=== PATIENT | female | born 1965 | race Caucasian/White ===

== ENCOUNTER 2019-10-12 16:04 | Emergency (ER) | payer MEDICAID ==
[~2019-10-12] VITALS: Ht 154.9 cm; Wt 65.0 kg
[2019-10-12] MEDS ORDERED: ondansetron/PF 4mg/2ml inj IV ONE (16:10)
[2019-10-12] MEDS ORDERED: normal saline 1000ML IV soln IVB ONE (16:45)
--- NOTE | 2019-10-12 16:45 | NUR ---
poison control advises to obeserve pt no less than 6 hrs, give fluids, give benzos for increased jitteriness, draw a cmp, tylenol, asa, utox. aware
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
[2019-10-12] MEDS ORDERED: HCTZ25T PO (17:05)
[2019-10-12] MEDS ORDERED: LANTUS SQ (17:05)
[2019-10-12] MEDS ORDERED: PANT40TA4 PO (17:05)
[2019-10-12] MEDS ORDERED: CYCL-1 PO (17:05)
[2019-10-12] MEDS ORDERED: GABA600T13 PO (17:05)
[2019-10-12 17:15] LABS: CLARITY,URINE CLEAR (Clear); COLOR,URINE YELLOW (Yellow); GLUCOSE, URINE NEGATIVE (Neg); KETONES,URINE NEGATIVE (Neg); LEUKOCYTE ESTERASE ,URINE NEGATIVE (Neg); NITRITES, URINE NEGATIVE (Neg); OCCULT BLOOD,URINE NEGATIVE (Neg); PH,URINE 5.5 (4.8-8.0); PROTEIN,URINE NEGATIVE (Neg); UROBILINOGEN,URINE 0.2 E.U/dL (0.2-1.0)
[2019-10-12 17:17] LABS: BASOPHILS # (AUTO) 0.1 X10'3 (0-0.2); EOSINOPHILS # (AUTO) 0.1 X10'3 (0-0.9); EOSINOPHILS % (AUTO) 1.7 % (0-6); LYMPHOCYTES # (AUTO) 2.5 X10'3 (1.1-4.8); LYMPHOCYTES % (AUTO) 40.9 % (21-51); MEAN CORPUSCULAR HEMOGLOBIN 28.7 PG (27.0-31.0); MEAN CORPUSCULAR HGB CONC 33.4 g/dL (33.0-36.5); MEAN CORPUSCULAR VOLUME 85.9 FL (78-98); MEAN PLATELET VOLUME 8.1 FL (7.4-10.4); MONOCYTES # (AUTO) 0.4 X10'3 (0-0.9); MONOCYTES % (AUTO) 6.2 % (2-12); NEUTROPHILS # (AUTO) 3.1 X10'3 (1.8-7.7); NEUTROPHILS % (AUTO) 50.2 % (42-75); PLATELET COUNT 284 X10'3 (140-440); RED BLOOD COUNT 4.53 X10'6 (4.20-5.60); RED CELL DISTRIBUTION WIDTH 14.4 % (11.5-14.5); WHITE BLOOD COUNT 6.2 X10'3 (4.5-11.0)
[2019-10-12 17:19] LABS: URINE AMPHETAMINE SCREEN POSITIVE (Neg); URINE BARBITUATE SCREEN NEGATIVE (Neg); URINE BENZODIAZEPINES SCREEN NEGATIVE (Neg); URINE CANNABINOID SCREEN NEGATIVE (Neg); URINE COCAINE SCREEN NEGATIVE (Neg); URINE METHADONE SCREEN NEGATIVE (Neg); URINE OPIATE SCREEN NEGATIVE (Neg); URINE PHENCYCLIDINE SCREEN NEGATIVE (Neg)
[2019-10-12 17:26] LABS: UA COLLECTION TYPE CLN CATCH MIDSTREAM
[2019-10-12 17:34] LABS: HEMOGLOBIN A1C 8.5 % (4.5-6.2)
[2019-10-12 17:35] LABS: ALANINE AMINOTRANSFERASE 30 U/L (12-78); ALBUMIN 3.6 G/DL (3.4-5.0); ALBUMIN/GLOBULIN RATIO 0.9 (1.1-1.5); ALKALINE PHOSPHATASE 97 IU/L (46-116); ANION GAP 9 (8-16); ASPARTATE AMINO TRANSFERASE 39 U/L (10-37); BILIRUBIN,TOTAL 0.3 MG/DL (0.1-1.0); BLOOD UREA NITROGEN 24 MG/DL (7-18); BUN/CREATININE RATIO 21.1 (6.6-38.0); CALCIUM 9.2 MG/DL (8.5-10.1); CHLORIDE 104 MMOL/L (99-107); CREATININE 1.14 MG/DL (0.40-0.90); GLUCOSE 112 MG/DL (70-104); SODIUM 141 MMOL/L (135-145); TOTAL CARBON DIOXIDE 27.9 MMOL/L (24-32); TOTAL PROTEIN 7.6 G/DL (6.4-8.2); eGFR 50 ML/MIN
[2019-10-12 17:37] LABS: ACETAMINOPHEN < 2.0 UG/ML (10-30); POTASSIUM 2.9 MMOL/L (3.5-5.1)
[2019-10-12] MEDS ORDERED: thiamine 100mg tablet PO ONE (18:15)
[2019-10-12] MEDS ORDERED: potassium Cl 20 mEq SR tablet PO ONE (18:15)
[2019-10-12] MEDS ORDERED: potassium 10mEq/100ml NS w/LIDOcaine (10mg/bag) IV SCH (18:15)
[2019-10-12] MEDS ORDERED: magnesium oxide 400mg tablet PO ONE (18:15)
[2019-10-12] MEDS ORDERED: phenobarbital inj 260 MG in normal saline 100ml IV soln 100 ML IV ONE (18:45)
--- NOTE | 2019-10-12 18:46 | NUR ---
pt up to the BR with tech. Steady gate.
--- NOTE | 2019-10-12 19:01 | NUR ---
packet faxed to [facility]
[2019-10-12] MEDS: potassium Cl 10 mEq/100mL bag IV SCH ×2 (19:28→20:43)
--- NOTE | 2019-10-12 19:29 | NUR ---
YONY increased to level 11 r/t 1799 hold. Pt is currently sitting EOB and eating supper.
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
[2019-10-12] MEDS ORDERED: cyclobenzaprine 10mg tablet PO SCH (21:00)
[2019-10-12] MEDS ORDERED: insulin glargine (Lantus) pen - multi-dose SQ SCH (21:00)
--- NOTE | 2019-10-12 21:03 | NUR ---
Poison control called and has closed the case out.
--- NOTE | 2019-10-12 21:04 | NUR ---
Per the patient she does not want any information given to anyone if they should call or try and visit
--- NOTE | 2019-10-12 22:39 | NUR ---
The patient appears to be sleeping
--- NOTE | 2019-10-13 00:55 | NUR ---
The patient is currently sleeping.
--- NOTE | 2019-10-13 05:26 | NUR ---
PT WAS MOVED BACK TO MAIN ER APPROX 0100 HRS. SHE HAS SLEPT THROUGH THE NIGHT WITH THE EXCEPTION OF GETTING UP TO VOID ON ONE OCCASSION. PT IN VIEW OF RN STATION.
[2019-10-13] MEDS ORDERED: pantoprazole 40mg Tablet.DR PO SCH (08:00)
[2019-10-13] MEDS ORDERED: HYDROchlorothiazide 25mg tablet PO SCH (08:00)
[2019-10-13 09:11] VITALS: BP 118/80
--- NOTE | 2019-10-13 10:23 | NUR ---
Breaking primary RN, pt is in room laying on left side, eyes closed, regular breathing present, no agitation observed
--- NOTE | 2019-10-13 11:28 | NUR ---
BREAKING PRIMARY RN, PT IS SITTING UP AT BED SIDE, WAITING FOR HER TRAY, SHE IS CALM AT THIS TIME
--- NOTE | 2019-10-13 17:04 | NUR ---
PATIENT HAS BEEN ACCEPTED AT [facility], PER DR. BURCIAGA AT 1600. TELEPHONE NUMBER TO FACILITY IS [phone]. PHONE REPORT GIVEN TO SWETA VÁZQUEZ AT THE FACILITY. HEAD BUYER TOBACCO TIME IS SCHEDULED FOR 1720.
--- NOTE | 2019-10-13 17:32 | NUR ---
discussed pt's increasing agitation with melisa de oliveira. new order for atandrade po received.
[2019-10-13] MEDS: LORazepam 1 MG tablet PO ONE ×2 (17:37→17:41)
--- NOTE | 2019-10-13 17:42 | NUR ---
med dropped on floor when attempting to administerd. wasted & witnessed by SWETA Peterson. New order placed.
[2019-10-13] MEDS ORDERED: LORazepam 1 MG tablet PO ONE ×2 (17:45)
== END 2019-10-13 18:09 ==
LOC: EEVIPCON 16:05 → ER 16:05
DX: T42.6X2A Poisoning by other antiepileptic and sedative-hypnotic drugs, intentional self-harm, initial encounter (principal); F10.129 Alcohol abuse with intoxication, unspecified; E87.6 Hypokalemia; R45.851 Suicidal ideations; F15.90 Other stimulant use, unspecified, uncomplicated; F32.9 Major depressive disorder, single episode, unspecified; Z79.4 Long term (current) use of insulin; Z79.899 Other long term (current) drug therapy; Y92.89 Other specified places as the place of occurrence of the external cause; Y90.0 Blood alcohol level of less than 20 mg/100 ml
CPT/HCPCS: 36415; 80053; 80305; 80320; 80329; 81003; 82948; 83036; 84443; 85025; 96365; 96366; 96368; 99285; J2560; J3480; J7030; 93005; J1815

== ENCOUNTER 2019-12-13 14:19 | Observation (INO) | payer MEDICAID ==
[~2019-12-13] VITALS: Ht 154.9 cm; Wt 65.0 kg
[~2019-12-13 14:19] MED LIST: CYCL-1 PO; GABA600T13 PO; HCTZ25T PO; LANTUS SQ; PANT40TA4 PO
[2019-12-13] MEDS ORDERED: fentaNYL/PF 50MCG/1 ML 2ML syringe IV ONE (14:35)
[2019-12-13] MEDS ORDERED: nitroGLYCERIN 1gm ointment UD TP ONE (14:35)
[2019-12-13] MEDS ORDERED: ondansetron/PF 4mg/2ml inj IV ONE (14:35)
[2019-12-13 15:04] LABS: BASOPHILS % (AUTO) 0.7 % (0-1); EOSINOPHILS # (AUTO) 0.1 X10'3 (0-0.9); EOSINOPHILS % (AUTO) 1.2 % (0-6); HEMATOCRIT 42.4 % (35.0-45.0); HEMOGLOBIN 14.3 g/dl (12.0-16.0); LYMPHOCYTES # (AUTO) 2.3 X10'3 (1.1-4.8); LYMPHOCYTES % (AUTO) 39.6 % (21-51); MEAN CORPUSCULAR HEMOGLOBIN 29.3 PG (27.0-31.0); MEAN CORPUSCULAR HGB CONC 33.7 g/dL (33.0-36.5); MEAN CORPUSCULAR VOLUME 86.9 FL (78-98); MEAN PLATELET VOLUME 9.3 FL (7.4-10.4); MONOCYTES # (AUTO) 0.3 X10'3 (0-0.9); MONOCYTES % (AUTO) 5.5 % (2-12); NEUTROPHILS # (AUTO) 3.1 X10'3 (1.8-7.7); PLATELET COUNT 190 X10'3 (140-440); RED BLOOD COUNT 4.88 X10'6 (4.20-5.60); RED CELL DISTRIBUTION WIDTH 15.6 % (11.5-14.5); WHITE BLOOD COUNT 5.8 X10'3 (4.5-11.0)
[2019-12-13 15:13] LABS: D-DIMER 1.18 MG/L FEU (0-0.50)
[2019-12-13 15:16] LABS: ALANINE AMINOTRANSFERASE 26 U/L (12-78); ALBUMIN 3.9 G/DL (3.4-5.0); ALBUMIN/GLOBULIN RATIO 0.9 (1.1-1.5); ALKALINE PHOSPHATASE 89 IU/L (46-116); ANION GAP 9 (8-16); ASPARTATE AMINO TRANSFERASE 26 U/L (10-37); BILIRUBIN,TOTAL 0.3 MG/DL (0.1-1.0); BLOOD UREA NITROGEN 21 MG/DL (7-18); BUN/CREATININE RATIO 17.2 (6.6-38.0); CALCIUM 10.5 MG/DL (8.5-10.1); CHLORIDE 104 MMOL/L (99-107); CREATININE 1.22 MG/DL (0.40-0.90); GLUCOSE 149 MG/DL (70-104); SODIUM 141 MMOL/L (135-145); TOTAL CARBON DIOXIDE 27.6 MMOL/L (24-32); TOTAL PROTEIN 8.3 G/DL (6.4-8.2); eGFR 46 ML/MIN
[2019-12-13 15:18] LABS: POTASSIUM 4.1 MMOL/L (3.5-5.1)
[2019-12-13] MEDS ORDERED: iohexol 350MG/ML 100ml bottle IV ONE (15:56)
[2019-12-13] MEDS ORDERED: normal saline 1000ml 1,000 ML IV ONE (16:05)
--- NOTE | 2019-12-13 16:25 | NUR ---
Student documentation: I have reviewed and agree with all interventions, assessments performed and documented by Molly MEMBRENO. Student Medication Administration: For this medication-pass time frame, all medication were reviewed, dispensed, administered and documented per hospital policy by Molly MEMBRENO. .
[2019-12-13] MEDS ORDERED: DICL100G30 (18:58)
[2019-12-13] MEDS ORDERED: LINA5TAB4 PO (18:58)
[2019-12-13] MEDS ORDERED: LISI10TA4 PO (18:58)
[2019-12-13] MEDS ORDERED: AMIT25TA9 PO (18:58)
[2019-12-13] MEDS ORDERED: metoprolol tartrate 1mg/ml inj IV PRN (20:00)
[2019-12-13] MEDS ORDERED: magnesium hydroxide 30ml (MOM) UD suspension PO PRN (20:00)
[2019-12-13] MEDS ORDERED: mag hydrox/Alum hydrox/simeth 30ml oral suspension PO PRN (20:00)
[2019-12-13] MEDS ORDERED: ondansetron/PF 4mg/2ml inj IV PRN (20:00)
[2019-12-13] MEDS ORDERED: magnesium 2GM in 50ml NS 50 ML IV PRN (20:00)
[2019-12-13] MEDS ORDERED: potassium Cl 20 mEq SR tablet PO PRN ×2 (20:00)
[2019-12-13] MEDS: K and/or MAG REPLACEMENT MC SCH (20:00)
[2019-12-13] MEDS ORDERED: nitroGLYCERIN 0.4mg SUBLingual tab SL PRN ×2 (20:00→20:30)
[2019-12-13] MEDS ORDERED: potassium CL 10mEq/100ml bag 100 ML IV PRN ×2 (20:00)
[2019-12-13] MEDS ORDERED: bisacodyl 10mg suppository rectal RC PRN (20:00)
[2019-12-13] MEDS ORDERED: acetaminophen 325mg tablet PO PRN (20:00)
[2019-12-13] MEDS ORDERED: regadenoson 0.4mg/5ml syringe IV ONE (20:00)
[2019-12-13] MEDS ORDERED: magnesium Cl slow-release 64mg tablet PO PRN (20:00)
[2019-12-13] MEDS ORDERED: aminophylline 250mg/10ml inj. IV PRN (20:00)
[2019-12-13] MEDS ORDERED: magnesium 4gm in 100ml NS 100 ML IV PRN (20:00)
[2019-12-13] MEDS ORDERED: glucagon, human recombinant 1mg kit SUBCUT PRN (20:10)
[2019-12-13] MEDS ORDERED: dextrose ORAL solution 15 GM/59 ML bottle PO PRN ×2 (20:10)
[2019-12-13] MEDS ORDERED: insulin Lispro (HumaLOG) vial - multi-dose SQ SCH (20:10)
[2019-12-13] MEDS ORDERED: MESSAGE TO PHARMACY PO ONE (20:10)
[2019-12-13] MEDS ORDERED: dextrose 50%-water 50ml dispensing syringe IV PRN ×2 (20:10)
--- NOTE | 2019-12-13 20:20 | NUR ---
I have received report from and had the opportunity to ask questions and assume patient care. Addendum: 12/14/19 at 0606 by Kristie Stein RN from SWETA Patel of ED.
[2019-12-13] MEDS ORDERED: aspirin 81mg tab.chew PO ONE (20:30)
[2019-12-13 20:46] LABS: HEMOGLOBIN A1C 8.2 % (4.5-6.2)
[2019-12-13 20:50] VITALS: BP 128/74
[2019-12-13] MEDS ORDERED: insulin glargine (Lantus) pen - multi-dose SQ SCH (21:00)
[2019-12-13] MEDS: heparin, porcine 5000 units/ml vial SQ SCH (21:42)
[2019-12-13] MEDS: docusate sod 100mg capsule PO SCH (21:42)
[2019-12-13] MEDS: normal saline 1000ml 1,000 ML IV SCH (21:51)
[2019-12-13] MEDS ORDERED: regadenoson 0.4mg/5ml syringe IV PRN (22:15)
[2019-12-14] VITALS (9 sets, daily range): BP systolic 97–176; BP diastolic 58–84
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
--- NOTE | 2019-12-14 00:36 | NUR ---
Paged Dr. Hannon. PAGER ID: [phone] MESSAGE: [phone]: EDDIE Laws- Pt has hx of suicide attempt 2 months ago by taking too much Gabapentin (hospitalized for this), but denied having any suicidal ideation now/recent.
[2019-12-14 02:43] LABS: BASOPHILS % (AUTO) 0.7 % (0-1); EOSINOPHILS # (AUTO) 0.1 X10'3 (0-0.9); EOSINOPHILS % (AUTO) 1.7 % (0-6); HEMATOCRIT 41.2 % (35.0-45.0); HEMOGLOBIN 13.5 g/dl (12.0-16.0); LYMPHOCYTES # (AUTO) 2.8 X10'3 (1.1-4.8); LYMPHOCYTES % (AUTO) 54.4 % (21-51); MEAN CORPUSCULAR HEMOGLOBIN 28.7 PG (27.0-31.0); MEAN CORPUSCULAR HGB CONC 32.8 g/dL (33.0-36.5); MEAN CORPUSCULAR VOLUME 87.4 FL (78-98); MEAN PLATELET VOLUME 8.5 FL (7.4-10.4); MONOCYTES # (AUTO) 0.3 X10'3 (0-0.9); MONOCYTES % (AUTO) 5.8 % (2-12); NEUTROPHILS # (AUTO) 1.9 X10'3 (1.8-7.7); NEUTROPHILS % (AUTO) 37.4 % (42-75); PLATELET COUNT 212 X10'3 (140-440); RED BLOOD COUNT 4.71 X10'6 (4.20-5.60); RED CELL DISTRIBUTION WIDTH 15.8 % (11.5-14.5); WHITE BLOOD COUNT 5.1 X10'3 (4.5-11.0)
[2019-12-14 02:56] LABS: ALANINE AMINOTRANSFERASE 24 U/L (12-78); ALBUMIN 3.6 G/DL (3.4-5.0); ALKALINE PHOSPHATASE 79 IU/L (46-116); ANION GAP 5 (8-16); ASPARTATE AMINO TRANSFERASE 17 U/L (10-37); BILIRUBIN,TOTAL 0.3 MG/DL (0.1-1.0); BLOOD UREA NITROGEN 19 MG/DL (7-18); BUN/CREATININE RATIO 16.5 (6.6-38.0); CALCIUM 9.1 MG/DL (8.5-10.1); CHLORIDE 107 MMOL/L (99-107); CREATININE 1.15 MG/DL (0.40-0.90); GLUCOSE 125 MG/DL (70-104); POTASSIUM 3.8 MMOL/L (3.5-5.1); SODIUM 142 MMOL/L (135-145); TOTAL CARBON DIOXIDE 30.4 MMOL/L (24-32); TOTAL PROTEIN 7.1 G/DL (6.4-8.2); eGFR 50 ML/MIN
[2019-12-14 03:00] LABS: MAGNESIUM 1.7 MG/DL (1.5-2.4); PHOSPHORUS 4.4 MG/DL (2.3-4.5)
[2019-12-14 03:18] LABS: ANISOCYTOSIS 2+; PLATELET ESTIMATE NORMAL; TOTAL CELLS COUNTED 100
--- NOTE | 2019-12-14 06:28 | NUR ---
Problems reprioritized. Patient report given, questions answered & plan of care reviewed with SWETA Quiroga.
--- NOTE | 2019-12-14 07:40 | NUR ---
Page sent to Dr. Umanzor: PAGER ID: [phone] MESSAGE: [phone] Katie Laws: Patient is requesting something for headache. Thanks, Kimber [phone]
--- NOTE | 2019-12-14 07:42 | NUR ---
Patient in room PCU 3016. I have received report from Mri Specialist RN and had the opportunity to ask questions and assume patient care.
[2019-12-14] MEDS: K and/or MAG REPLACEMENT MC SCH (08:00)
[2019-12-14] MEDS ORDERED: lisinopril 10 MG tablet PO SCH (08:00)
[2019-12-14] MEDS ORDERED: metoprolol tartrate 12.5mg (1/2 tablet) PO SCH (08:00)
[2019-12-14] MEDS ORDERED: pantoprazole 40mg Tablet.DR PO SCH (08:00)
[2019-12-14] MEDS ORDERED: aspirin 81mg tab.chew PO SCH (08:00)
[2019-12-14] MEDS ORDERED: atorvastatin 10mg tablet PO SCH (08:00)
[2019-12-14] MEDS ORDERED: HYDROchlorothiazide 25mg tablet PO SCH (08:00)
[2019-12-14] MEDS: gabapentin 300mg capsule PO SCH ×2 (08:39→13:00)
[2019-12-14] MEDS: docusate sod 100mg capsule PO SCH (08:40)
[2019-12-14] MEDS: heparin, porcine 5000 units/ml vial SQ SCH (08:42)
[2019-12-14] MEDS ORDERED: acetaminophen 325mg tablet PO PRN (09:20)
--- NOTE | 2019-12-14 10:00 | NUR ---
Unable to obtain patient's AM accucheck due to work load. Patient at [facility]. Will obtain afternoon blood sugar and continue to monitor.
[2019-12-14] MEDS: normal saline 1000ml 1,000 ML IV SCH (12:02)
--- NOTE | 2019-12-14 14:01 | NUR ---
Student documentation: I have reviewed and agree with all interventions, assessments performed and documented by SN Socorro. Student Medication Administration: For this medication-pass time frame, all medication were reviewed, dispensed, administered and documented per hospital policy by SN. Socorro .
--- NOTE | 2019-12-14 14:01 | NUR ---
Patient stable for discharge per MD order. All discharge information and education reviewed with patient before signing. IV discontinued with catheter in tact, youth nutritional monitor removed and returned, no new prescriptions. Patient picked up by transport service.
--- NOTE | 2019-12-14 15:01 | NUR ---
Spoke to transport service, they said the regional dedicated truck driver would be in front of lobby to pick up and delivery driver at 1340 and would call when they arrived. The patient was wheeled down by aide and [employer] at 1338. At approx 1400, the regional dedicated truck driver called and said he had been waiting and hadn't seen the patient. RN went down to lobby immediately and did not see transport service. After calling transport center, they informed RN the regional dedicated truck driver had cancelled the ride. RN called company back and voiced how the regional dedicated truck driver was not there and must have gone to the wrong location. After spending 40 minutes on the phone to arrange a ride swiftly, the only option given was a 2-4 hour wait. insurance manager Latonia notified.
[2019-12-14] MEDS ORDERED: amitriptyline 25mg tablet PO SCH (21:00)
== END 2019-12-14 13:40 | disposition home or self-care (01) ==
LOC: ER 14:19 → ED HOLD 19:57 → PCU 3S 20:45
PROVIDERS: ADMIT Family Medicine; ATTEND Family Medicine
DX: R07.89 Other chest pain (principal); E11.9 Type 2 diabetes mellitus without complications; I25.10 Atherosclerotic heart disease of native coronary artery without angina pectoris; I10 Essential (primary) hypertension; E78.5 Hyperlipidemia, unspecified; F32.9 Major depressive disorder, single episode, unspecified; F15.90 Other stimulant use, unspecified, uncomplicated; F10.129 Alcohol abuse with intoxication, unspecified; I25.2 Old myocardial infarction; Z79.4 Long term (current) use of insulin; Z79.899 Other long term (current) drug therapy
CPT/HCPCS: 36415; 71045; 71275; 78452; 80053; 82948; 83036; 83735; 84100; 84484; 85025; 85379; 87081; 93005; 93017; 93308; 96372; 96374; 96375; 99285; A9500; G0378; J1644; J2405; J2785; J3010; J7030; Q9967; J1815

== ENCOUNTER 2019-12-31 12:16 | Emergency (ER) | payer MEDICAID ==
[~2019-12-31] VITALS: Ht 154.9 cm; Wt 68.0 kg
[~2019-12-31 12:16] MED LIST changes: +AMIT25TA9 PO; +DICL100G30; +LINA5TAB4 PO; +LISI10TA4 PO
[2019-12-31 12:37] VITALS: BP 151/95
--- NOTE | 2019-12-31 13:18 | NUR ---
called for pt once
[2019-12-31 13:32] LABS: CLARITY,URINE CLEAR (Clear); COLOR,URINE YELLOW (Yellow); GLUCOSE, URINE NEGATIVE (Neg); KETONES,URINE NEGATIVE (Neg); LEUKOCYTE ESTERASE ,URINE NEGATIVE (Neg); NITRITES, URINE NEGATIVE (Neg); OCCULT BLOOD,URINE NEGATIVE (Neg); PH,URINE 5.5 (4.8-8.0); PROTEIN,URINE NEGATIVE (Neg); UROBILINOGEN,URINE 0.2 E.U/dL (0.2-1.0)
[2019-12-31 13:38] LABS: UA COLLECTION TYPE NON-SPECIFIED
[2019-12-31 13:42] LABS: ALANINE AMINOTRANSFERASE 34 U/L (12-78); ALBUMIN 4.2 G/DL (3.4-5.0); ALBUMIN/GLOBULIN RATIO 1.1 (1.1-1.5); ALKALINE PHOSPHATASE 84 IU/L (46-116); ANION GAP 13 (8-16); ASPARTATE AMINO TRANSFERASE 42 U/L (10-37); BILIRUBIN,TOTAL 0.4 MG/DL (0.1-1.0); BLOOD UREA NITROGEN 23 MG/DL (7-18); BUN/CREATININE RATIO 20.5 (6.6-38.0); CALCIUM 9.4 MG/DL (8.5-10.1); CHLORIDE 106 MMOL/L (99-107); CREATININE 1.12 MG/DL (0.40-0.90); GLUCOSE 127 MG/DL (70-104); LIPASE 89 U/L (73-393); SODIUM 141 MMOL/L (135-145); TOTAL CARBON DIOXIDE 22.4 MMOL/L (24-32); TOTAL PROTEIN 8.2 G/DL (6.4-8.2); eGFR 51 ML/MIN
[2019-12-31 14:00] LABS: BASOPHILS % (AUTO) 0.7 % (0-1); EOSINOPHILS # (AUTO) 0.1 X10'3 (0-0.9); HEMATOCRIT 41.1 % (35.0-45.0); HEMOGLOBIN 13.8 g/dl (12.0-16.0); LYMPHOCYTES # (AUTO) 2.4 X10'3 (1.1-4.8); LYMPHOCYTES % (AUTO) 38.6 % (21-51); MEAN CORPUSCULAR HGB CONC 33.7 g/dL (33.0-36.5); MEAN PLATELET VOLUME 7.9 FL (7.4-10.4); MONOCYTES # (AUTO) 0.3 X10'3 (0-0.9); MONOCYTES % (AUTO) 4.5 % (2-12); NEUTROPHILS # (AUTO) 3.3 X10'3 (1.8-7.7); NEUTROPHILS % (AUTO) 54.2 % (42-75); PLATELET COUNT 296 X10'3 (140-440); RED BLOOD COUNT 4.77 X10'6 (4.20-5.60); RED CELL DISTRIBUTION WIDTH 15.2 % (11.5-14.5); WHITE BLOOD COUNT 6.1 X10'3 (4.5-11.0)
[2019-12-31] MEDS ORDERED: VANC125C5 PO (15:43)
--- NOTE | 2019-12-31 16:44 | NUR ---
STOOL SAMPLE COLLECTED, SENT TO LAB
[2020-01-01 09:45] LABS: C DIFF SPECIMEN=DIARRHEA? ACCEPTABLE; C DIFFICILE TOXINS A&B NEGATIVE (Neg)
[2020-01-01 09:46] LABS: C DIFF ANTIGEN SEE COMMENTS (NEGATIVE)
[2020-01-01 11:41] LABS: C DIFF TOXIN (LAMP) POSITIVE (NEG)
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
== END 2019-12-31 16:54 | disposition home or self-care (01) ==
LOC: ER 12:17
DX: R19.7 Diarrhea, unspecified (principal); I25.10 Atherosclerotic heart disease of native coronary artery without angina pectoris; I25.2 Old myocardial infarction; F32.9 Major depressive disorder, single episode, unspecified; F15.90 Other stimulant use, unspecified, uncomplicated; Z79.4 Long term (current) use of insulin; Z79.899 Other long term (current) drug therapy
CPT/HCPCS: 36415; 80053; 81003; 83690; 85025; 87324; 87449; 87493; 99283

== ENCOUNTER 2020-06-27 00:18 | Emergency (ER) | payer MEDICAID ==
[~2020-06-27] VITALS: Ht 154.9 cm; Wt 72.7 kg
[~2020-06-27 00:18] MED LIST changes: -PANT40TA4 PO; +PANT40TA54 PO
[2020-06-27] MEDS ORDERED: ondansetron/PF 4mg/2ml inj IV ONE (01:00)
[2020-06-27] MEDS ORDERED: normal saline 1000ML IV soln IVB ONE (01:00)
[2020-06-27 01:44] LABS: BASOPHILS % (AUTO) 0.4 % (0-1); EOSINOPHILS # (AUTO) 0.1 X10'3 (0-0.9); EOSINOPHILS % (AUTO) 0.6 % (0-6); HEMATOCRIT 43.3 % (35.0-45.0); HEMOGLOBIN 14.6 g/dl (12.0-16.0); LYMPHOCYTES # (AUTO) 1.3 X10'3 (1.1-4.8); LYMPHOCYTES % (AUTO) 11.1 % (21-51); MEAN CORPUSCULAR HEMOGLOBIN 29.9 PG (27.0-31.0); MEAN CORPUSCULAR HGB CONC 33.6 g/dL (33.0-36.5); MEAN CORPUSCULAR VOLUME 88.8 FL (78-98); MEAN PLATELET VOLUME 8.4 FL (7.4-10.4); MONOCYTES # (AUTO) 0.5 X10'3 (0-0.9); MONOCYTES % (AUTO) 4.4 % (2-12); NEUTROPHILS % (AUTO) 83.5 % (42-75); PLATELET COUNT 244 X10'3 (140-440); RED BLOOD COUNT 4.87 X10'6 (4.20-5.60); RED CELL DISTRIBUTION WIDTH 14.3 % (11.5-14.5); WHITE BLOOD COUNT 11.9 X10'3 (4.5-11.0)
[2020-06-27 01:46] LABS: ALANINE AMINOTRANSFERASE 29 U/L (12-78); ALBUMIN 4.4 G/DL (3.4-5.0); ALBUMIN/GLOBULIN RATIO 1.1 (1.1-1.5); ALKALINE PHOSPHATASE 103 IU/L (46-116); ANION GAP 10 (8-16); ASPARTATE AMINO TRANSFERASE 12 U/L (10-37); BILIRUBIN,TOTAL 0.3 MG/DL (0.1-1.0); BLOOD UREA NITROGEN 30 MG/DL (7-18); CALCIUM 9.1 MG/DL (8.5-10.1); CHLORIDE 103 MMOL/L (99-107); GLUCOSE 210 MG/DL (70-104); LIPASE 93 U/L (73-393); POTASSIUM 3.5 MMOL/L (3.5-5.1); SODIUM 141 MMOL/L (135-145); TOTAL PROTEIN 8.5 G/DL (6.4-8.2); eGFR 47 ML/MIN
[2020-06-27] MEDS ORDERED: ONDA4TAB12 PO (02:10)
[2020-06-27 03:02] VITALS: BP 140/87
== END 2020-06-27 03:10 | disposition home or self-care (01) ==
LOC: ER 00:19
DX: R11.2 Nausea with vomiting, unspecified (principal); R05 Cough; I25.10 Atherosclerotic heart disease of native coronary artery without angina pectoris; I25.2 Old myocardial infarction; E11.9 Type 2 diabetes mellitus without complications; F32.9 Major depressive disorder, single episode, unspecified; Z72.89 Other problems related to lifestyle; Z79.4 Long term (current) use of insulin; Z79.899 Other long term (current) drug therapy
CPT/HCPCS: 36415; 80053; 83690; 85025; 96361; 96374; 99284; J2405; J7030

== ENCOUNTER 2021-02-16 12:52 | Emergency (ER) | payer MEDICAID ==
[~2021-02-16] VITALS: Ht 154.9 cm; Wt 65.9 kg
[~2021-02-16 12:52] MED LIST changes: -HCTZ25T PO; +HYDR25TA5 PO; +LISI10TA27 PO; -LISI10TA4 PO; +ONDA4TAB12 PO
[2021-02-16 14:14] LABS: BASOPHILS % (AUTO) 0.4 % (0-1); EOSINOPHILS # (AUTO) 0.1 X10'3 (0-0.9); EOSINOPHILS % (AUTO) 1.6 % (0-6); HEMATOCRIT 38.6 % (35.0-45.0); LYMPHOCYTES # (AUTO) 2.3 X10'3 (1.1-4.8); LYMPHOCYTES % (AUTO) 35.9 % (21-51); MEAN CORPUSCULAR HEMOGLOBIN 29.6 PG (27.0-31.0); MEAN CORPUSCULAR HGB CONC 33.7 g/dL (33.0-36.5); MEAN CORPUSCULAR VOLUME 87.7 FL (78-98); MEAN PLATELET VOLUME 10.3 FL (7.4-10.4); MONOCYTES # (AUTO) 0.3 X10'3 (0-0.9); MONOCYTES % (AUTO) 5.2 % (2-12); NEUTROPHILS # (AUTO) 3.7 X10'3 (1.8-7.7); NEUTROPHILS % (AUTO) 56.9 % (42-75); PLATELET COUNT 224 X10'3 (140-440); RED CELL DISTRIBUTION WIDTH 14.2 % (11.5-14.5); WHITE BLOOD COUNT 6.5 X10'3 (4.5-11.0)
[2021-02-16 14:23] LABS: CLARITY,URINE CLEAR (Clear); COLOR,URINE YELLOW (Yellow); GLUCOSE, URINE NEGATIVE (Neg); KETONES,URINE NEGATIVE (Neg); LEUKOCYTE ESTERASE ,URINE NEGATIVE (Neg); NITRITES, URINE NEGATIVE (Neg); OCCULT BLOOD,URINE TRACE-INTACT (Neg); PH,URINE 5.5 (4.8-8.0); PROTEIN,URINE NEGATIVE (Neg); UROBILINOGEN,URINE 0.2 E.U/dL (0.2-1.0)
[2021-02-16 14:23] LABS: ALANINE AMINOTRANSFERASE 30 U/L (12-78); ALBUMIN/GLOBULIN RATIO 1.1 (1.1-1.5); ALKALINE PHOSPHATASE 98 IU/L (46-116); ANION GAP 9 (8-16); ASPARTATE AMINO TRANSFERASE 21 U/L (10-37); BILIRUBIN,TOTAL 0.4 MG/DL (0.1-1.0); BLOOD UREA NITROGEN 29 MG/DL (7-18); BUN/CREATININE RATIO 21.5 (6.6-38.0); CALCIUM 9.1 MG/DL (8.5-10.1); CHLORIDE 104 MMOL/L (99-107); CREATININE 1.35 MG/DL (0.40-0.90); GLUCOSE 78 MG/DL (70-104); LIPASE < 50 U/L (73-393); POTASSIUM 3.8 MMOL/L (3.5-5.1); SODIUM 140 MMOL/L (135-145); TOTAL CARBON DIOXIDE 26.7 MMOL/L (24-32); TOTAL PROTEIN 7.7 G/DL (6.4-8.2); eGFR 41 ML/MIN
[2021-02-16 14:25] LABS: BACTERIA,URINE NONE SEEN /HPF (Neg); MUCUS STRANDS FEW /LPF (Neg); RBC,URINE 0-2 /HPF (0-2); SQUAMOUS EPITHELIAL CELL,UR FEW /LPF (FEW); UA COLLECTION TYPE CLN CATCH MIDSTREAM; WBC,URINE NONE SEEN /HPF (0-4)
--- NOTE | 2021-02-16 18:35 | NUR ---
US in room with patient
[2021-02-16] MEDS ORDERED: SULF1TAB49 PO (20:30)
[2021-02-16] MEDS ORDERED: sulfamethoxazole/trimethoprim DS (800/160mg) tablet PO ONE (20:35)
[2021-02-16 20:40] VITALS: BP 155/66
--- NOTE | 2021-02-16 20:41 | NUR ---
patient given dc instructions and rx and patient acknowledged understanding. pt vs wnl. patient has no further needs or complaints. patient dc home.
== END 2021-02-16 20:43 | disposition home or self-care (01) ==
LOC: ER 12:53
DX: L03.116 Cellulitis of left lower limb (principal); E11.9 Type 2 diabetes mellitus without complications; I51.9 Heart disease, unspecified; F32.9 Major depressive disorder, single episode, unspecified; F17.210 Nicotine dependence, cigarettes, uncomplicated; F12.10 Cannabis abuse, uncomplicated; F15.10 Other stimulant abuse, uncomplicated
CPT/HCPCS: 36415; 80053; 81001; 83690; 85025; 93971; 99284